=== PATIENT | male | born 1955 | race Caucasian/White ===

== ENCOUNTER → 2018-01-27 | Outpatient (CLI) | payer SELFPAY | END | disposition home or self-care (01) | LOC: EKG 13:00 | DX: I51.7 Cardiomegaly (principal); I05.1 Rheumatic mitral insufficiency; I07.1 Rheumatic tricuspid insufficiency; I09.89 Other specified rheumatic heart diseases; I74.8 Embolism and thrombosis of other arteries; I49.9 Cardiac arrhythmia, unspecified | CPT/HCPCS: 93306 ==